=== PATIENT | male | born 1940 | race Caucasian/White ===

== ENCOUNTER 2019-08-02 17:21 | Inpatient (IN) ==
[2019-08-02] MEDS ORDERED: DEXTROSE 50% 25 GM/50 ML VIAL IV PRN (17:28)
[2019-08-02] MEDS ORDERED: MAGNESIUM HYDROXIDE SUSP 30 ML UDCUP PO PRN (17:28)
[2019-08-02] MEDS ORDERED: ACETAMINOPHEN 325 MG TABLET PO PRN (17:28)
[2019-08-02] MEDS ORDERED: ONDANSETRON 4 MG/2 ML VIAL IV PRN (17:28)
[2019-08-02] MEDS ORDERED: GLUCAGON 1 MG VIAL IM PRN (17:28)
[2019-08-02 18:57] LABS: Basophils % 0.1 % (0.0-0.8); Hematocrit 41.3 VOL% (42.0-52.0); Hemoglobin 12.7 GM/DL (14.0-18.0); Immature Granulocytes % 0.7 %; Immature Granulocytes Absolute 0.15 #; Lymphocytes # 3.1 10*3/uL (1.4-4.0); Lymphocytes % 14.7 % (21.2-54.2); Mean Corpuscular HGB Conc 30.8 GM/DL (32-36); Mean Corpuscular Volume 79.1 FL (87-102); Mean Platelet Volume 9.7 FL (9.6-12.0); Monocytes % 8.8 % (1.7-12.7); Neutrophils % 75.7 % (38.7-73.9); Platelet Count 419 T/CUMM (130-400); Red Blood Count 5.22 MC/CUMM (3.8-5.5); Red Cell Distribution Width 15.4 % (9.3-17.3); White Blood Count 20.8 T/CUMM (4-12)
[2019-08-02 19:13] LABS: Albumin 3.8 G/DL (3.4-5.0); Bilirubin,Total 1.2 MG/DL (0.2-1.0); Calcium 9.5 MG/DL (8.5-10.1); Osmolality,Calculated 267.7 MOS/KG (273-304); Total Protein 8.8 G/DL (6.4-8.3)
[2019-08-02 19:38] LABS: Band Neutrophils 1 % (0-10); Lymphocytes 8 % (20-55); Platelet Estimate Increased; Promyelocytes 1 %; Segmented Neutrophils 78 % (50-85); Total Cells Counted 100
[2019-08-02] MEDS: ALBUTEROL/IPRATROPIUM 3 ML NEB RESP TX SCH ×2 (19:42→23:03)
[2019-08-02] MEDS: LEVOFLOXACIN INJ 750 MG in PREMIX 1 EACH IV SCH (21:04)
[2019-08-02] MEDS: methylPREDNISolone SOD SUC 40 MG/1 ML VIAL IV SCH (21:04)
[2019-08-02] MEDS: INSULIN REGULAR 100 UNIT/ML SUBCUT SCH (21:07)
[2019-08-02] MEDS: SODIUM CHLORIDE 0.45% 1,000 ML IV SCH (22:47)
[2019-08-03] MEDS: methylPREDNISolone SOD SUC 40 MG/1 ML VIAL IV SCH ×3 (02:43→20:56)
[2019-08-03] MEDS: ALBUTEROL/IPRATROPIUM 3 ML NEB RESP TX SCH ×6 (03:20→22:28)
[2019-08-03 05:19] LABS: Basophils % 0.1 % (0.0-0.8); Hematocrit 34.1 VOL% (42.0-52.0); Hemoglobin 10.6 GM/DL (14.0-18.0); Immature Granulocytes % 0.5 %; Immature Granulocytes Absolute 0.07 #; Lymphocytes # 1.1 10*3/uL (1.4-4.0); Lymphocytes % 7.6 % (21.2-54.2); Mean Corpuscular HGB Conc 31.1 GM/DL (32-36); Mean Corpuscular Volume 77.7 FL (87-102); Mean Platelet Volume 9.8 FL (9.6-12.0); Monocytes % 2.6 % (1.7-12.7); Neutrophils % 89.2 % (38.7-73.9); Platelet Count 300 T/CUMM (130-400); Red Blood Count 4.39 MC/CUMM (3.8-5.5); Red Cell Distribution Width 15.3 % (9.3-17.3); White Blood Count 14.6 T/CUMM (4-12)
[2019-08-03 05:57] LABS: Bilirubin,Total 0.8 MG/DL (0.2-1.0); Calcium 9.1 MG/DL (8.5-10.1); Osmolality,Calculated 275.2 MOS/KG (273-304); Risk Ratio 3.74; Total Protein 7.5 G/DL (6.4-8.3); VLDL CHOLESTEROL 18.6 MG/DL
[2019-08-03] MEDS: SODIUM CHLORIDE 0.45% 1,000 ML IV SCH ×2 (06:10→17:17)
[2019-08-03 07:27] LABS: Apearance,Urine CLEAR (Clear); Bacteria,Urine Occasional /HPF (Few); Bilirubin,Urine Negative (Negative); Blood, Urine Negative (Negative); Glucose,Urine (UA) >=500 mg/dL (Negative); Hyaline Casts,Urine 17 /LPF (0-3); Ketones,Urine 5 mg/dL (Negative); Mucus,Urine Occasional /LPF (Occasional); Nitrite,Urine Negative (Negative); Protein,Urine Negative; RBC,Urine <1 /HPF (0-4); Squamous Epithelial Cell,Urine Occasional /HPF (0-10); Urine Color Yellow (Yellow); Urine Specific Gravity 1.003 (1.001-1.035); Urine Urobilinogen < 2.0 EU/DL (0.2-1.0)
[2019-08-03] MEDS: INSULIN REGULAR 100 UNIT/ML SUBCUT SCH ×4 (08:32→21:05)
[2019-08-03] MEDS: PANTOPRAZOLE 40 MG TABLET PO SCH (10:47)
[2019-08-03] MEDS: ATORVASTATIN 40 MG TABLET PO SCH (10:47)
[2019-08-03] MEDS: LEVOFLOXACIN INJ 750 MG in PREMIX 1 EACH IV SCH (20:57)
[2019-08-03] MEDS: PHENOL 1.4% THROAT SPRAY 177 ML BOTTLE PO PRN (22:49)
[2019-08-04] MEDS: PHENOL 1.4% THROAT SPRAY 177 ML BOTTLE PO PRN (01:07)
[2019-08-04] MEDS: SODIUM CHLORIDE 0.45% 1,000 ML IV SCH ×2 (01:22→08:23)
[2019-08-04] MEDS: ALBUTEROL/IPRATROPIUM 3 ML NEB RESP TX SCH ×6 (02:38→23:50)
[2019-08-04 04:24] LABS: Basophils % 0.1 % (0.0-0.8); Hematocrit 33.7 VOL% (42.0-52.0); Hemoglobin 10.7 GM/DL (14.0-18.0); Immature Granulocytes % 1.3 %; Immature Granulocytes Absolute 0.29 #; Lymphocytes # 1.1 10*3/uL (1.4-4.0); Lymphocytes % 4.7 % (21.2-54.2); Mean Corpuscular HGB Conc 31.8 GM/DL (32-36); Mean Corpuscular Volume 76.6 FL (87-102); Mean Platelet Volume 9.9 FL (9.6-12.0); Monocytes % 4.6 % (1.7-12.7); Neutrophils % 89.3 % (38.7-73.9); Platelet Count 369 T/CUMM (130-400); Red Cell Distribution Width 15.4 % (9.3-17.3); White Blood Count 23.2 T/CUMM (4-12)
[2019-08-04 04:46] LABS: Band Neutrophils 1 % (0-10); Hypochromasia 1+; Lymphocytes 4 % (20-55); Ovalocytes Slight; Platelet Estimate Adequate; Segmented Neutrophils 91 % (50-85); Total Cells Counted 100
[2019-08-04 04:49] LABS: Albumin 3.1 G/DL (3.4-5.0); Bilirubin,Total 0.6 MG/DL (0.2-1.0); Calcium 11.1 MG/DL (8.5-10.1); Osmolality,Calculated 280.7 MOS/KG (273-304); Total Protein 7.6 G/DL (6.4-8.3)
[2019-08-04] MEDS: methylPREDNISolone SOD SUC 40 MG/1 ML VIAL IV SCH ×3 (05:12→21:04)
[2019-08-04] MEDS: INSULIN REGULAR 100 UNIT/ML SUBCUT SCH ×4 (07:56→21:07)
[2019-08-04] MEDS: PANTOPRAZOLE 40 MG TABLET PO SCH (08:19)
[2019-08-04] MEDS: ATORVASTATIN 40 MG TABLET PO SCH (08:19)
[2019-08-04] MEDS: SODIUM CHLOR 0.45% KCL 20 MEQ 20 MEQ/1,000 ML BAG IV SCH ×2 (08:21→22:47)
[2019-08-04] MEDS ORDERED: BISACODYL 5 MG TABLET PO ONE (12:00)
[2019-08-04 14:51] LABS: Mycoplasma pneumoniae Ab Inter SEE COMMENTS; Mycoplasma pneumoniae Ab, IgG Positive (Negative); Mycoplasma pneumoniae Ab, IgM Negative (Negative)
[2019-08-04] MEDS ORDERED: POLYETHYLENE GLYCOL POWDER 255 GM BOTTLE PO ONE (15:00)
[2019-08-04] MEDS ORDERED: LEVOFLOXACIN INJ 500 MG in PREMIX 1 EACH IV SCH (21:00)
[2019-08-05] MEDS: ALBUTEROL/IPRATROPIUM 3 ML NEB RESP TX SCH ×6 (03:05→23:45)
[2019-08-05] MEDS: methylPREDNISolone SOD SUC 40 MG/1 ML VIAL IV SCH ×2 (04:39→13:02)
[2019-08-05 05:17] LABS: Basophils # 0.1 10*3/uL (0.0-0.2); Basophils % 0.2 % (0.0-0.8); Hematocrit 30.6 VOL% (42.0-52.0); Hemoglobin 9.7 GM/DL (14.0-18.0); Immature Granulocytes % 2.4 %; Immature Granulocytes Absolute 0.69 #; Lymphocytes # 1.2 10*3/uL (1.4-4.0); Lymphocytes % 4.3 % (21.2-54.2); Mean Corpuscular HGB Conc 31.7 GM/DL (32-36); Mean Corpuscular Volume 76.9 FL (87-102); Mean Platelet Volume 9.8 FL (9.6-12.0); Neutrophils % 89.1 % (38.7-73.9); Platelet Count 361 T/CUMM (130-400); Red Blood Count 3.98 MC/CUMM (3.8-5.5); Red Cell Distribution Width 15.8 % (9.3-17.3); White Blood Count 28.2 T/CUMM (4-12)
[2019-08-05 05:20] LABS: INR 1.1; PT Patient Result 11.4 SECS (9.6-12.2)
[2019-08-05] MEDS: SODIUM CHLOR 0.45% KCL 20 MEQ 20 MEQ/1,000 ML BAG IV SCH ×2 (05:26→21:39)
[2019-08-05 05:37] LABS: Albumin 2.9 G/DL (3.4-5.0); Bilirubin,Total 0.8 MG/DL (0.2-1.0); Calcium 10.1 MG/DL (8.5-10.1); Lymphocytes 5 % (20-55); Osmolality,Calculated 275.1 MOS/KG (273-304); Segmented Neutrophils 93 % (50-85); Total Cells Counted 100; Total Protein 6.5 G/DL (6.4-8.3)
[2019-08-05 05:38] LABS: Hypochromasia 1+; Ovalocytes Slight; Platelet Estimate Adequate
[2019-08-05] MEDS ORDERED: MAGNESIUM CITRATE 300 ML BOTTLE PO PRN (06:00)
[2019-08-05] MEDS ORDERED: LACTATED RINGERS 1,000 ML IV SCH (08:00)
[2019-08-05] MEDS: INSULIN REGULAR 100 UNIT/ML SUBCUT SCH ×4 (08:18→20:27)
[2019-08-05] MEDS: PANTOPRAZOLE 40 MG TABLET PO SCH (08:19)
[2019-08-05] MEDS: ATORVASTATIN 40 MG TABLET PO SCH (08:19)
[2019-08-05] MEDS ORDERED: PROPOFOL 200 MG/20 ML VIAL IV ONE (12:37)
[2019-08-05] MEDS ORDERED: LIDOCAINE 2% 5 ML VIAL ONE (12:37)
[2019-08-05] MEDS: LEVOFLOXACIN 500 MG TABLET PO SCH (20:27)
[2019-08-05] MEDS: TAMSULOSIN 0.4 MG CAPSULE PO SCH (20:27)
[2019-08-06] MEDS: ALBUTEROL/IPRATROPIUM 3 ML NEB RESP TX SCH ×6 (03:16→23:50)
[2019-08-06 05:44] LABS: Basophils # 0.1 10*3/uL (0.0-0.2); Basophils % 0.5 % (0.0-0.8); Hematocrit 30.3 VOL% (42.0-52.0); Hemoglobin 9.6 GM/DL (14.0-18.0); Immature Granulocytes % 6.2 %; Immature Granulocytes Absolute 0.98 #; Lymphocytes # 1.8 10*3/uL (1.4-4.0); Lymphocytes % 11.5 % (21.2-54.2); Mean Corpuscular HGB Conc 31.7 GM/DL (32-36); Mean Corpuscular Volume 76.1 FL (87-102); Mean Platelet Volume 9.8 FL (9.6-12.0); Monocytes % 8.4 % (1.7-12.7); Neutrophils % 73.4 % (38.7-73.9); Platelet Count 351 T/CUMM (130-400); Red Blood Count 3.98 MC/CUMM (3.8-5.5); Red Cell Distribution Width 16.1 % (9.3-17.3); White Blood Count 15.7 T/CUMM (4-12)
[2019-08-06 06:06] LABS: Albumin 2.8 G/DL (3.4-5.0); Bilirubin,Total 0.6 MG/DL (0.2-1.0); Osmolality,Calculated 279.5 MOS/KG (273-304)
[2019-08-06 06:13] LABS: Hypochromasia 1+; Lymphocytes 12 % (20-55); Ovalocytes Slight; Platelet Estimate Adequate; Segmented Neutrophils 81 % (50-85); Total Cells Counted 100
[2019-08-06] MEDS: INSULIN REGULAR 100 UNIT/ML SUBCUT SCH ×4 (07:44→22:12)
[2019-08-06] MEDS: PANTOPRAZOLE 40 MG TABLET PO SCH (09:31)
[2019-08-06] MEDS: ATORVASTATIN 40 MG TABLET PO SCH (09:31)
[2019-08-06] MEDS: TAMSULOSIN 0.4 MG CAPSULE PO SCH ×2 (09:31→22:10)
[2019-08-06] MEDS: predniSONE 20 MG TABLET PO SCH (09:31)
[2019-08-06] MEDS: SODIUM CHLOR 0.45% KCL 20 MEQ 20 MEQ/1,000 ML BAG IV SCH ×2 (11:28→11:32)
[2019-08-06] MEDS: LEVOFLOXACIN 500 MG TABLET PO SCH (22:10)
[2019-08-07] MEDS: ALBUTEROL/IPRATROPIUM 3 ML NEB RESP TX SCH ×6 (03:35→22:49)
[2019-08-07] MEDS: INSULIN REGULAR 100 UNIT/ML SUBCUT SCH ×4 (07:58→21:06)
[2019-08-07] MEDS: ATORVASTATIN 40 MG TABLET PO SCH (08:49)
[2019-08-07] MEDS: TAMSULOSIN 0.4 MG CAPSULE PO SCH ×2 (08:50→21:06)
[2019-08-07] MEDS: PANTOPRAZOLE 40 MG TABLET PO SCH (08:50)
[2019-08-07] MEDS: predniSONE 20 MG TABLET PO SCH (08:50)
[2019-08-07] MEDS: LEVOFLOXACIN 500 MG TABLET PO SCH (21:07)
[2019-08-08] MEDS: ALBUTEROL/IPRATROPIUM 3 ML NEB RESP TX SCH ×6 (02:40→23:35)
[2019-08-08] MEDS: TAMSULOSIN 0.4 MG CAPSULE PO SCH ×2 (09:16→21:06)
[2019-08-08] MEDS: predniSONE 20 MG TABLET PO SCH (09:16)
[2019-08-08] MEDS: ATORVASTATIN 40 MG TABLET PO SCH (09:17)
[2019-08-08] MEDS: INSULIN REGULAR 100 UNIT/ML SUBCUT SCH ×4 (09:17→21:12)
[2019-08-08] MEDS: PANTOPRAZOLE 40 MG TABLET PO SCH (09:17)
[2019-08-08] MEDS: LEVOFLOXACIN 500 MG TABLET PO SCH (21:06)
[2019-08-09] MEDS: ALBUTEROL/IPRATROPIUM 3 ML NEB RESP TX SCH ×2 (02:00→07:54)
[2019-08-09] MEDS: INSULIN REGULAR 100 UNIT/ML SUBCUT SCH (07:23)
[2019-08-09 08:16] VITALS: BP 131/58
[2019-08-09] MEDS: TAMSULOSIN 0.4 MG CAPSULE PO SCH (08:49)
[2019-08-09] MEDS: ATORVASTATIN 40 MG TABLET PO SCH (08:49)
[2019-08-09] MEDS: PANTOPRAZOLE 40 MG TABLET PO SCH (08:50)
[2019-08-09] MEDS ORDERED: predniSONE 20 MG TABLET PO SCH (09:00)
== END 2019-08-09 10:39 | disposition home health service (06) | DRG 202 ==
LOC: N.2E 17:43
PROVIDERS: ADMIT Family Medicine; ATTEND Family Medicine
PROC: COLONBX (2019-08-05 11:05)

== ENCOUNTER 2019-09-10 05:53 | Inpatient (IN) ==
[2019-09-07 11:49] LABS: Basophils % 0.4 % (0.0-0.8); Eosinophils # 0.1 10*3/uL (0.0-0.87); Eosinophils % 0.6 % (0.00-10.9); Hematocrit 32.1 VOL% (42.0-52.0); Hemoglobin 9.6 GM/DL (14.0-18.0); Immature Granulocytes % 0.4 %; Immature Granulocytes Absolute 0.04 #; Lymphocytes # 2.1 10*3/uL (1.4-4.0); Mean Corpuscular HGB Conc 29.9 GM/DL (32-36); Mean Corpuscular Volume 84.7 FL (87-102); Mean Platelet Volume 8.9 FL (9.6-12.0); Monocytes % 9.7 % (1.7-12.7); Neutrophils % 68.9 % (38.7-73.9); Platelet Count 429 T/CUMM (130-400); Red Blood Count 3.79 MC/CUMM (3.8-5.5); White Blood Count 10.3 T/CUMM (4-12)
[2019-09-07 12:19] LABS: Calcium 8.7 MG/DL (8.5-10.1); Osmolality,Calculated 278.5 MOS/KG (273-304)
[2019-09-10] MEDS ORDERED: LIDOCAINE 1% 5 ML VIAL ONE (06:08)
[2019-09-10] MEDS ORDERED: EPINEPHrine 1 MG/ML VIAL ONE (06:08)
[2019-09-10] MEDS ORDERED: ROPIVACAINE 0.5% 30 ML VIAL ONE (06:08)
[2019-09-10] MEDS ORDERED: DEXAMETHASONE 4 MG/1 ML VIAL ONE (06:08)
[2019-09-10] MEDS ORDERED: ALVIMOPAN 12 MG CAPSULE ONE (06:13)
[2019-09-10] MEDS ORDERED: LACTATED RINGERS 1,000 ML IV SCH (06:30)
[2019-09-10] MEDS ORDERED: LIDOCAINE 1%/EPI INJ 20 ML VIAL ONE (06:52)
[2019-09-10] MEDS ORDERED: BUPIVACAINE 0.5% 50 ML VIAL ONE (06:52)
[2019-09-10] MEDS ORDERED: ALVIMOPAN 12 MG CAPSULE PO ONE (07:00)
[2019-09-10] MEDS ORDERED: cefOXitin 1,000 MG in SYRINGE 1 EACH IV ONE (07:00)
[2019-09-10] MEDS ORDERED: INDOCYANINE GREEN 25 MG VIAL IV ONE (10:19)
[2019-09-10] MEDS ORDERED: fentaNYL 100 MCG/2 ML VIAL ONE (11:27)
[2019-09-10] MEDS ORDERED: LIDOCAINE 2% 5 ML VIAL ONE (11:27)
[2019-09-10] MEDS ORDERED: SEVOFLURANE 1 UNIT/15 MINUTE INH ONE (11:27)
[2019-09-10] MEDS ORDERED: KETOROLAC 30 MG/1 ML VIAL ONE (11:27)
[2019-09-10] MEDS ORDERED: MIDAZOLAM 2 MG/2 ML VIAL ONE (11:27)
[2019-09-10] MEDS ORDERED: GLYCOPYRROLATE 0.4 MG/2 ML VIAL ONE ×2 (11:27)
[2019-09-10] MEDS ORDERED: ONDANSETRON 4 MG/2 ML VIAL ONE (11:27)
[2019-09-10] MEDS ORDERED: PROPOFOL 200 MG/20 ML VIAL IV ONE (11:27)
[2019-09-10] MEDS ORDERED: LACTATED RINGERS 2,000 ML IV ONE (11:28)
[2019-09-10] MEDS ORDERED: PHENYLEPHRINE 10 MG/1 ML VIAL IV ONE (11:28)
[2019-09-10] MEDS ORDERED: ROCURONIUM 100 MG/10 ML VIAL IV ONE (11:28)
[2019-09-10] MEDS ORDERED: NEOSTIGMINE 10 MG/10 ML VIAL ONE (11:28)
[2019-09-10] MEDS ORDERED: PHENYLEPHRINE 1 MG/10 ML SYRINGE IV ONE (11:28)
[2019-09-10 11:44] LABS: Amorphous Crystals,Urine Occasional /HPF (Few); Apearance,Urine Slightly Hazy (Clear); Bacteria,Urine Occasional /HPF (Few); Bilirubin,Urine Negative (Negative); Blood, Urine Negative (Negative); Glucose,Urine (UA) Negative (Negative); Hyaline Casts,Urine 8 /LPF (0-3); Ketones,Urine Negative (Negative); Mucus,Urine Occasional /LPF (Occasional); Nitrite,Urine Negative (Negative); Protein,Urine Negative; RBC,Urine 7 /HPF (0-4); Squamous Epithelial Cell,Urine Occasional /HPF (0-10); Urine Color Yellow (Yellow); Urine Specific Gravity 1.017 (1.001-1.035); Urine Urobilinogen < 2.0 EU/DL (0.2-1.0); WBC,Urine 82 /HPF (0-6)
[2019-09-10] MEDS ORDERED: INFLUENZA VIRUS VACCINE 0.5 ML SYRINGE IM ONE (12:19)
[2019-09-10] MEDS ORDERED: ONDANSETRON 4 MG/2 ML VIAL IV PRN (12:39)
[2019-09-10] MEDS ORDERED: ALBUTEROL/IPRATROPIUM 3 ML NEB RESP TX PRN (12:39)
[2019-09-10] MEDS ORDERED: ACETAMINOPHEN 325 MG TABLET PO PRN (12:39)
[2019-09-10] MEDS ORDERED: DEXTROSE 50% 25 GM/50 ML VIAL IV PRN (12:43)
[2019-09-10] MEDS ORDERED: GLUCAGON 1 MG VIAL IM PRN (12:43)
[2019-09-10] MEDS: TAMSULOSIN 0.4 MG CAPSULE PO SCH ×3 (13:19→21:27)
[2019-09-10] MEDS: KETOROLAC 15 MG/1 ML VIAL IV SCH ×2 (13:20→21:27)
[2019-09-10] MEDS: LACTATED RINGERS 1,000 ML IV SCH ×2 (13:21→21:58)
[2019-09-10] MEDS ORDERED: MORPHINE 4 MG/1 ML VIAL IV PRN (14:55)
[2019-09-10] MEDS ORDERED: PROMETHAZINE 25 MG/1 ML VIAL IM PRN (14:57)
[2019-09-10] MEDS: MORPHINE 4 MG/1 ML VIAL IV PRN ×3 (15:23→23:18)
[2019-09-10] MEDS ORDERED: CIPROFLOXACIN INJ 400 MG in PREMIX 1 EACH IV SCH (16:00)
[2019-09-10] MEDS: INSULIN LISPRO 100 UNIT/ML SUBCUT SCH (17:51)
[2019-09-10] MEDS ORDERED: diphenhydrAMINE CAP 25 MG CAPSULE PO ONE (18:40)
[2019-09-10] MEDS ORDERED: cefOXitin 1,000 MG in SODIUM CHLORIDE 0.9% 100 ML IV SCH (19:00)
[2019-09-10] MEDS: cefOXitin 1,000 MG in SODIUM CHLORIDE 0.9% 100 ML IV SCH (21:26)
[2019-09-10] MEDS: ALVIMOPAN 12 MG CAPSULE PO SCH (21:27)
[2019-09-11] MEDS: KETOROLAC 15 MG/1 ML VIAL IV SCH ×4 (00:55→19:17)
[2019-09-11] MEDS: cefOXitin 1,000 MG in SODIUM CHLORIDE 0.9% 100 ML IV SCH ×3 (05:12→20:34)
[2019-09-11 05:22] LABS: Basophils % 0.1 % (0.0-0.8); Hematocrit 25.9 VOL% (42.0-52.0); Hemoglobin 7.7 GM/DL (14.0-18.0); Immature Granulocytes % 0.6 %; Immature Granulocytes Absolute 0.08 #; Lymphocytes # 1.8 10*3/uL (1.4-4.0); Mean Corpuscular HGB Conc 29.7 GM/DL (32-36); Mean Corpuscular Volume 84.4 FL (87-102); Mean Platelet Volume 9.4 FL (9.6-12.0); Monocytes % 9.1 % (1.7-12.7); Neutrophils % 77.2 % (38.7-73.9); Platelet Count 374 T/CUMM (130-400); Red Blood Count 3.07 MC/CUMM (3.8-5.5); White Blood Count 14.1 T/CUMM (4-12)
[2019-09-11 05:57] LABS: Calcium 8.5 MG/DL (8.5-10.1); Osmolality,Calculated 285.1 MOS/KG (273-304)
[2019-09-11] MEDS: MORPHINE 4 MG/1 ML VIAL IV PRN ×2 (07:42→12:09)
[2019-09-11] MEDS: INSULIN LISPRO 100 UNIT/ML SUBCUT SCH ×3 (08:17→16:59)
[2019-09-11] MEDS: LACTATED RINGERS 1,000 ML IV SCH ×2 (09:12→18:20)
[2019-09-11] MEDS: TAMSULOSIN 0.4 MG CAPSULE PO SCH ×2 (09:13→20:34)
[2019-09-11] MEDS: ALVIMOPAN 12 MG CAPSULE PO SCH ×2 (09:13→20:34)
[2019-09-11] MEDS: PANTOPRAZOLE 40 MG VIAL IV SCH (09:13)
[2019-09-12] MEDS: KETOROLAC 15 MG/1 ML VIAL IV SCH ×4 (01:16→18:21)
[2019-09-12] MEDS: LACTATED RINGERS 1,000 ML IV SCH ×3 (01:17→20:54)
[2019-09-12] MEDS: cefOXitin 1,000 MG in SODIUM CHLORIDE 0.9% 100 ML IV SCH ×3 (04:58→20:54)
[2019-09-12 05:12] LABS: Basophils % 0.2 % (0.0-0.8); Eosinophils # 0.1 10*3/uL (0.0-0.87); Eosinophils % 1.3 % (0.00-10.9); Hematocrit 23.3 VOL% (42.0-52.0); Hemoglobin 6.9 GM/DL (14.0-18.0); Immature Granulocytes % 0.8 %; Immature Granulocytes Absolute 0.07 #; Lymphocytes % 24.5 % (21.2-54.2); Mean Corpuscular HGB Conc 29.6 GM/DL (32-36); Mean Platelet Volume 9.5 FL (9.6-12.0); Monocytes % 9.7 % (1.7-12.7); Neutrophils % 63.5 % (38.7-73.9); Platelet Count 300 T/CUMM (130-400); Red Blood Count 2.74 MC/CUMM (3.8-5.5); Red Cell Distribution Width 17.5 % (9.3-17.3); White Blood Count 8.3 T/CUMM (4-12)
[2019-09-12 05:31] LABS: Calcium 8.3 MG/DL (8.5-10.1); Osmolality,Calculated 279.3 MOS/KG (273-304)
[2019-09-12 06:07] LABS: Platelet Estimate Normal
[2019-09-12 06:08] LABS: Anisocytosis 2+
[2019-09-12] MEDS: INSULIN LISPRO 100 UNIT/ML SUBCUT SCH ×3 (08:05→17:59)
[2019-09-12] MEDS: TAMSULOSIN 0.4 MG CAPSULE PO SCH ×2 (09:27→20:54)
[2019-09-12] MEDS: ALVIMOPAN 12 MG CAPSULE PO SCH ×2 (09:27→23:05)
[2019-09-12] MEDS: PANTOPRAZOLE 40 MG VIAL IV SCH (09:27)
[2019-09-13] MEDS: KETOROLAC 15 MG/1 ML VIAL IV SCH ×2 (01:12→06:23)
[2019-09-13] MEDS: cefOXitin 1,000 MG in SODIUM CHLORIDE 0.9% 100 ML IV SCH ×2 (03:13→13:39)
[2019-09-13] MEDS: INSULIN LISPRO 100 UNIT/ML SUBCUT SCH ×2 (08:43→11:48)
[2019-09-13] MEDS: PANTOPRAZOLE 40 MG VIAL IV SCH (08:44)
[2019-09-13] MEDS: TAMSULOSIN 0.4 MG CAPSULE PO SCH (08:44)
[2019-09-13 12:21] VITALS: BP 143/75
[2019-09-13 13:19] LABS: Hemoglobin 8.9 GM/DL (14.0-18.0)
[2019-09-14] MEDS ORDERED: PIOGLITAZONE 15 MG TABLET PO SCH (09:00)
== END 2019-09-13 16:03 | disposition home or self-care (01) | DRG 331 ==
LOC: N.PREADM 05:53 → N.SDSINP 05:54 → N.3E 11:54
PROVIDERS: ADMIT Surgery; ATTEND Surgery

== ENCOUNTER 2020-02-16 14:41 | Inpatient (IN) ==
[2020-02-16] MEDS: DEXTROSE 5% NACL 0.9% 1,000 ML IV SCH ×2 (14:51→22:07)
[2020-02-16] MEDS ORDERED: SODIUM CHLORIDE 0.9% 500 ML IV STA (14:59)
[2020-02-16 15:07] LABS: Basophils % 0.2 % (0.0-0.8); Hematocrit 40.2 VOL% (42.0-52.0); Hemoglobin 12.5 GM/DL (14.0-18.0); Immature Granulocytes Absolute 0.12 #; Lymphocytes % 8.6 % (21.2-54.2); Mean Corpuscular HGB Conc 31.1 GM/DL (32-36); Mean Platelet Volume 10.1 FL (9.6-12.0); Monocytes % 7.5 % (1.7-12.7); Neutrophils % 82.7 % (38.7-73.9); Platelet Count 279 T/CUMM (130-400); Red Blood Count 5.29 MC/CUMM (3.8-5.5); Red Cell Distribution Width 22.4 % (9.3-17.3); White Blood Count 12.1 T/CUMM (4-12)
[2020-02-16] MEDS ORDERED: DEXTROSE 50% 25 GM/50 ML VIAL IV STA (15:09)
[2020-02-16 15:17] LABS: PT Patient Result 10.9 SECS (9.8-11.9)
[2020-02-16] MEDS ORDERED: SUCCINYLCHOLINE 200 MG/10 ML VIAL IV STA (15:34)
[2020-02-16 16:01] LABS: Alanine Aminotransferase 15 U/L (16-61); Albumin 3.8 G/DL (3.4-5.0); Alkaline Phosphatase 104 U/L (45-117); Aspartate Amino Transferase 8 U/L (0-37); Blood Urea Nitrogen 68 MG/DL (7-18); Calcium 9.6 MG/DL (8.5-10.1); Estimated Glom Filtration Rate 6 ML/MIN; Osmolality,Calculated 285.1 MOS/KG (273-304)
[2020-02-16 16:02] LABS: ABG Base Excess -8.6 MMOL/L (-2.5-2.5); ABG HCO3 17.5 MMOL/L (20-26); ABG Oxygen Saturation 98.8 % (95-100); ABG PCO2 27.7 MM HG (35-48); ABG PH 7.359 (7.35-7.45); Allen Test Positive; Pt O2 Delivery Device Ventilator
[2020-02-16 16:11] LABS: Glucose 22 MG/DL (74-106)
[2020-02-16 16:42] LABS: Apearance,Urine CLOUDY (Clear); Bilirubin,Urine Negative (Negative); Blood, Urine Moderate mg/dL (Negative); Glucose,Urine (UA) Negative (Negative); Ketones,Urine Negative (Negative); Nitrite,Urine Negative (Negative); Protein,Urine 30 MG/DL; Urine Color Yellow (Yellow); Urine Specific Gravity 1.011 (1.001-1.035)
[2020-02-16 16:43] LABS: RBC,Urine 8 /HPF (0-4); Urine Urobilinogen < 2.0 EU/DL (0.2-1.0); WBC,Urine 393 /HPF (0-6)
[2020-02-16] MEDS ORDERED: cefTRIAXone 1,000 MG VIAL ONE (17:03)
[2020-02-16] MEDS: HYDROCORTISONE 100 MG VIAL IV SCH ×2 (17:09→22:31)
[2020-02-16] MEDS: cefTRIAXone 1,000 MG in SYRINGE 1 EACH IV SCH (17:18)
[2020-02-16] MEDS ORDERED: MORPHINE 4 MG/1 ML VIAL IV PRN (18:01)
[2020-02-16] MEDS ORDERED: GLUCAGON 1 MG VIAL IM PRN (18:01)
[2020-02-16] MEDS ORDERED: ONDANSETRON 4 MG/2 ML VIAL IV PRN (18:01)
[2020-02-16] MEDS: INSULIN LISPRO 100 UNIT/ML SUBCUT SCH ×2 (18:20→21:25)
[2020-02-16] MEDS ORDERED: HYDROXYCHLOROQUINE 200 MG TABLET PO SCH (21:00)
[2020-02-16] MEDS ORDERED: cloNIDine 0.3 MG/24 HR PATCH TRANSDERM SCH (21:00)
[2020-02-16] MEDS ORDERED: ACETAMINOPHEN 325 MG/10.15 ML UDCUP PO PRN (21:09)
[2020-02-16] MEDS: TAMSULOSIN 0.4 MG CAPSULE PO SCH (21:24)
[2020-02-16] MEDS: HYDROXYCHLOROQUINE 200 MG TABLET PER TUBE SCH (21:24)
[2020-02-16] MEDS: amLODIPine 5 MG TABLET PER TUBE SCH (21:24)
[2020-02-16] MEDS: ENOXAPARIN 30 MG/0.3 ML SYRINGE SUBCUT SCH (21:24)
[2020-02-17] MEDS: INSULIN LISPRO 100 UNIT/ML SUBCUT SCH ×6 (02:23→23:17)
[2020-02-17 04:15] LABS: ABG Base Excess -6.1 MMOL/L (-2.5-2.5); ABG HCO3 15.9 MMOL/L (20-26); ABG Oxygen Saturation 98.9 % (95-100); ABG PH 7.498 (7.35-7.45); ABG PO2 484.2 MM HG (80-95); ABG TCO2 16.5 MMOL/L (23-27)
[2020-02-17 04:17] LABS: ABG PCO2 20.9 MM HG (35-48)
[2020-02-17] MEDS: HYDROCORTISONE 100 MG VIAL IV SCH ×4 (04:41→23:08)
[2020-02-17] MEDS: DEXTROSE 5% NACL 0.9% 1,000 ML IV SCH (04:42)
[2020-02-17 05:37] LABS: Hematocrit 30.1 VOL% (42.0-52.0); Hemoglobin 9.7 GM/DL (14.0-18.0); Immature Granulocytes % 0.6 %; Immature Granulocytes Absolute 0.05 #; Lymphocytes # 1.2 10*3/uL (1.4-4.0); Lymphocytes % 14.1 % (21.2-54.2); Mean Corpuscular HGB Conc 32.2 GM/DL (32-36); Mean Corpuscular Volume 73.6 FL (87-102); Mean Platelet Volume 10.3 FL (9.6-12.0); Monocytes % 11.5 % (1.7-12.7); Neutrophils % 73.8 % (38.7-73.9); Platelet Count 208 T/CUMM (130-400); Red Blood Count 4.09 MC/CUMM (3.8-5.5); Red Cell Distribution Width 21.2 % (9.3-17.3); White Blood Count 8.5 T/CUMM (4-12)
[2020-02-17 06:20] LABS: Albumin 2.6 G/DL (3.4-5.0); Bilirubin,Total 0.7 MG/DL (0.2-1.0); Calcium 8.3 MG/DL (8.5-10.1); Osmolality,Calculated 295.7 MOS/KG (273-304); Total Protein 6.5 G/DL (6.4-8.3)
[2020-02-17] MEDS: HYDROXYCHLOROQUINE 200 MG TABLET PER TUBE SCH (08:41)
[2020-02-17] MEDS: ATORVASTATIN 40 MG TABLET PO SCH (08:42)
[2020-02-17] MEDS: TAMSULOSIN 0.4 MG CAPSULE PO SCH ×2 (08:42→20:26)
[2020-02-17] MEDS: amLODIPine 5 MG TABLET PER TUBE SCH (08:43)
[2020-02-17 09:46] LABS: Ferritin 36.5 ng/ml (26-388)
[2020-02-17] MEDS: SODIUM CHLORIDE 0.9% 1,000 ML IV SCH ×2 (10:54→20:38)
[2020-02-17] MEDS ORDERED: SODIUM CHLORIDE 0.9% 1,000 ML IV ONE (15:19)
[2020-02-17] MEDS ORDERED: NOREPINEPHRINE 8 MG in SODIUM CHLORIDE 0.9% 242 ML IV PRN (15:19)
[2020-02-17] MEDS: cefTRIAXone 1,000 MG in SYRINGE 1 EACH IV SCH (16:55)
[2020-02-17] MEDS: ENOXAPARIN 30 MG/0.3 ML SYRINGE SUBCUT SCH (20:44)
[2020-02-17] MEDS: POTASSIUM CHLORIDE 20 MEQ/15 ML UDCUP PER TUBE PRN ×2 (20:45→23:28)
[2020-02-17] MEDS: HYDROXYCHLOROQUINE 200 MG TABLET PO SCH (20:45)
[2020-02-18] MEDS: POTASSIUM CHLORIDE 20 MEQ/15 ML UDCUP PER TUBE PRN ×2 (03:18→06:12)
[2020-02-18] MEDS: INSULIN LISPRO 100 UNIT/ML SUBCUT SCH ×5 (03:18→21:20)
[2020-02-18] MEDS: HYDROCORTISONE 100 MG VIAL IV SCH ×4 (03:44→22:13)
[2020-02-18 04:45] LABS: ABG Base Excess -4.8 MMOL/L (-2.5-2.5); ABG HCO3 17.4 MMOL/L (20-26); ABG Oxygen Saturation 98.5 % (95-100); ABG PCO2 22.9 MM HG (35-48); ABG PH 7.498 (7.35-7.45); ABG PO2 232.2 MM HG (80-95); ABG TCO2 18.1 MMOL/L (23-27); Allen Test Positive; Pt O2 Delivery Device Ventilator
[2020-02-18 05:10] LABS: Basophils % 0.1 % (0.0-0.8); Hematocrit 28.4 VOL% (42.0-52.0); Hemoglobin 8.9 GM/DL (14.0-18.0); Immature Granulocytes % 0.4 %; Immature Granulocytes Absolute 0.03 #; Lymphocytes # 1.4 10*3/uL (1.4-4.0); Lymphocytes % 17.7 % (21.2-54.2); Mean Corpuscular HGB Conc 31.3 GM/DL (32-36); Mean Corpuscular Volume 75.3 FL (87-102); Monocytes % 10.8 % (1.7-12.7); Platelet Count 221 T/CUMM (130-400); Red Blood Count 3.77 MC/CUMM (3.8-5.5); White Blood Count 8.1 T/CUMM (4-12)
[2020-02-18 05:29] LABS: Albumin 2.3 G/DL (3.4-5.0); Bilirubin,Total 0.7 MG/DL (0.2-1.0); Calcium 8.3 MG/DL (8.5-10.1); Osmolality,Calculated 298.8 MOS/KG (273-304); Total Protein 5.9 G/DL (6.4-8.3)
[2020-02-18] MEDS: SODIUM CHLORIDE 0.9% 1,000 ML IV SCH ×3 (05:41→22:14)
[2020-02-18] MEDS: HYDROXYCHLOROQUINE 200 MG TABLET PO SCH (08:33)
[2020-02-18] MEDS: ATORVASTATIN 40 MG TABLET PO SCH (08:33)
[2020-02-18] MEDS: PANTOPRAZOLE 40 MG VIAL IV SCH (08:33)
[2020-02-18] MEDS: amLODIPine 5 MG TABLET PER TUBE SCH (08:34)
[2020-02-18] MEDS: TAMSULOSIN 0.4 MG CAPSULE PO SCH ×2 (09:40→21:20)
[2020-02-18] MEDS: cefTRIAXone 1,000 MG in SYRINGE 1 EACH IV SCH (18:50)
[2020-02-18 19:09] VITALS: BP 142/70
[2020-02-18] MEDS: ENOXAPARIN 30 MG/0.3 ML SYRINGE SUBCUT SCH (21:20)
[2020-02-19] MEDS: INSULIN LISPRO 100 UNIT/ML SUBCUT SCH ×5 (00:44→21:17)
[2020-02-19] MEDS: SODIUM CHLORIDE 0.9% 1,000 ML IV SCH (02:20)
[2020-02-19 04:16] LABS: ABG Base Excess -3.3 MMOL/L (-2.5-2.5); ABG HCO3 19.7 MMOL/L (20-26); ABG PCO2 28.5 MM HG (35-48); ABG PH 7.457 (7.35-7.45); ABG PO2 98.6 MM HG (80-95); ABG TCO2 20.6 MMOL/L (23-27)
[2020-02-19 04:17] LABS: Allen Test Positive
[2020-02-19] MEDS: HYDROCORTISONE 100 MG VIAL IV SCH ×2 (05:02→17:30)
[2020-02-19 06:50] LABS: Basophils % 0.1 % (0.0-0.8); Eosinophils % 0.1 % (0.00-10.9); Hematocrit 32.8 VOL% (42.0-52.0); Hemoglobin 10.1 GM/DL (14.0-18.0); Immature Granulocytes % 0.6 %; Immature Granulocytes Absolute 0.04 #; Lymphocytes # 1.4 10*3/uL (1.4-4.0); Lymphocytes % 18.8 % (21.2-54.2); Mean Corpuscular HGB Conc 30.8 GM/DL (32-36); Mean Corpuscular Volume 77.4 FL (87-102); Mean Platelet Volume 9.8 FL (9.6-12.0); Monocytes % 8.6 % (1.7-12.7); Neutrophils % 71.8 % (38.7-73.9); Platelet Count 235 T/CUMM (130-400); Red Blood Count 4.24 MC/CUMM (3.8-5.5); Red Cell Distribution Width 20.9 % (9.3-17.3); White Blood Count 7.2 T/CUMM (4-12)
[2020-02-19 07:36] LABS: Albumin 2.3 G/DL (3.4-5.0); Bilirubin,Total 0.8 MG/DL (0.2-1.0); Calcium 8.3 MG/DL (8.5-10.1); Osmolality,Calculated 300.4 MOS/KG (273-304); Total Protein 5.8 G/DL (6.4-8.3)
[2020-02-19] MEDS: PANTOPRAZOLE 40 MG VIAL IV SCH (09:00)
[2020-02-19] MEDS: TAMSULOSIN 0.4 MG CAPSULE PO SCH ×2 (09:00→21:18)
[2020-02-19] MEDS: amLODIPine 5 MG TABLET PER TUBE SCH (09:00)
[2020-02-19] MEDS: ATORVASTATIN 40 MG TABLET PO SCH (09:00)
[2020-02-19] MEDS: POTASSIUM CHLORIDE 20 MEQ/15 ML UDCUP PO SCH ×2 (14:30→17:30)
[2020-02-19] MEDS: cefTRIAXone 1,000 MG in SYRINGE 1 EACH IV SCH (18:18)
[2020-02-19] MEDS ORDERED: ENOXAPARIN 40 MG/0.4 ML SYRINGE SUBCUT SCH (21:00)
[2020-02-20] MEDS: INSULIN LISPRO 100 UNIT/ML SUBCUT SCH ×4 (02:17→11:44)
[2020-02-20 03:54] LABS: Allen Test Positive
[2020-02-20 03:57] LABS: ABG Base Excess -2.9 MMOL/L (-2.5-2.5); ABG HCO3 19.5 MMOL/L (20-26); ABG Oxygen Saturation 93.9 % (95-100); ABG PCO2 26.4 MM HG (35-48); ABG PH 7.487 (7.35-7.45); ABG PO2 70.5 MM HG (80-95); ABG TCO2 20.3 MMOL/L (23-27)
[2020-02-20 04:39] LABS: Basophils % 0.1 % (0.0-0.8); Eosinophils # 0.1 10*3/uL (0.0-0.87); Eosinophils % 1.9 % (0.00-10.9); Hematocrit 37.4 VOL% (42.0-52.0); Hemoglobin 11.6 GM/DL (14.0-18.0); Immature Granulocytes % 1.1 %; Immature Granulocytes Absolute 0.08 #; Lymphocytes # 1.7 10*3/uL (1.4-4.0); Lymphocytes % 22.6 % (21.2-54.2); Mean Corpuscular Volume 76.3 FL (87-102); Mean Platelet Volume 10.1 FL (9.6-12.0); Monocytes % 10.1 % (1.7-12.7); Neutrophils % 64.2 % (38.7-73.9); Platelet Count 258 T/CUMM (130-400); Red Cell Distribution Width 20.5 % (9.3-17.3); White Blood Count 7.6 T/CUMM (4-12)
[2020-02-20 04:55] LABS: Albumin 2.5 G/DL (3.4-5.0); Bilirubin,Total 0.5 MG/DL (0.2-1.0); Calcium 8.2 MG/DL (8.5-10.1); Osmolality,Calculated 280.5 MOS/KG (273-304); Total Protein 6.2 G/DL (6.4-8.3)
[2020-02-20] MEDS: HYDROCORTISONE 100 MG VIAL IV SCH (06:21)
[2020-02-20] MEDS ORDERED: amLODIPine 5 MG TABLET PO SCH (07:56)
[2020-02-20] MEDS: ATORVASTATIN 40 MG TABLET PO SCH (08:22)
[2020-02-20] MEDS: TAMSULOSIN 0.4 MG CAPSULE PO SCH (08:23)
[2020-02-20] MEDS: POTASSIUM CHLORIDE 20 MEQ TABLET PO SCH ×2 (08:23→11:40)
[2020-02-20] MEDS ORDERED: PANTOPRAZOLE 40 MG TABLET PO SCH (09:00)
[2020-02-21] MEDS ORDERED: POTASSIUM CHLORIDE 20 MEQ TABLET PO SCH (09:00)
== END 2020-02-20 13:45 | disposition home health service (06) | DRG 637 ==
LOC: EDUNIT# → EDBD → N.ED 14:41 → N.EDINP 15:49 → N.CC 17:31 → N.ICU 02-18 15:59
PROVIDERS: ADMIT Internal Medicine; ATTEND Internal Medicine